=== PATIENT | male | born 1995 | race Caucasian/White ===

== ENCOUNTER 2016-06-09 12:24 | Emergency (ER) | payer BC ==
[2016-06-09 12:32] VITALS: BP 166/85
--- NOTE | 2016-06-09 13:32 | ERNOTE ---
ENT HPI Date of Service: 06/09/16 Presenting Symptoms: other - Sore throat Time Seen by Provider: 06/09/16 13:21 Source: patient, RN/MD, RN notes reviewed Exam Limitations: no limitations - Immun/Allergies/Home Medications Immunizations: IMMUNIZATION HX Immunizations Up to Date Yes Allergies/Adverse Reactions: Allergies Allergy/AdvReac Type Severity Reaction Status Date / Time No Known Allergies Allergy Unverified 06/09/16 12:32 Home Medications: HOME MEDICATIONS NK [No Home Medication] 06/09/16 [Last Taken Unknown] - History of Present Illness Narrative: Jefferson is a 21-year-old male who presents to the emergency department with a sore throat. He was initially evaluated by Dr. Beard in our clinic in 10:00. He was diagnosed with strep throat. He was sent here for further evaluation due to concerns that he could have a peritonsillar abscess. He reports having a sore throat for a week that seemed to be getting better, but noticed swelling in the left lateral aspect of his neck yesterday. He last took medication for his fever at 3:00 this morning and is currently afebrile. He denies any difficulty breathing or any difficulty swallowing. ENT Location: Present: throat Prearrival Treatment: Present: over the counter meds Associated Symptoms - ENT: Reports: fever, malaise, sore throat. Denies: poor fluid intake, poor solid intake, cough, voice change, nasal congestion/drainage , facial pain/swelling, tooth pain, jaw swelling, change in hearing, ear drainage, headache Prior Treament: Reports: recently seen Review of Systems - Review of Systems Constitutional: Present: See HPI EYE: Present: no symptoms reported ENT: Present: sore throat. Absent: throat swelling Respiratory: Absent: shortness of breath, cough, orthopnea, wheezing, stridor Cardiology: Present: no symptoms reported Gastrointestinal/Abdominal: Absent: nausea, vomiting, abdominal pain Genitourinary: Present: no symptoms reported Musculoskeletal: Present: neck pain. Absent: muscle stiffness Skin: Present: lumps. Absent: rash, lesions Neurological: Absent: headache, dizziness/light-headedness Endocrine: Present: no symptoms reported Hematologic/Lymphatic: Present: no symptoms reported Psych: Present: no symptoms reported - Patient's Past Medical History Patient History - Medical: No pertinent hx Patient History - Cardiac/Respiratory: No pertinent hx Patient History - Cancer: No Hx of Cancer Patient History - Surgical Procedures: No surgical history - Social History Living Situations: home Smoking Status: Never smoker Have you smoked in the past 12 months: No Alcohol Use: occasionally Drug Use: none - Immunizations Immunizations Up to Date: Yes Physical Exam - Physical Exam General Appearance: Present: wd/wn, alert, no apparent distress Eye Exam: Normal inspection: bilateral Ears, Nose, Throat: Present: hearing grossly normal, pharyngeal erythema, tonsillar swelling - Tonsils 2+ bilaterally, other - No focal area of inflammation present in oropharynx suspicious of abscess, foul breath odor present. Absent: abnormal TM (R), abnormal TM (L), nasal congestion, pharyngeal swelling, tonsillar exudate Neck: Present: supple, full range of motion, lymphadenopathy (R), lymphadenopathy (L), tender lateral - mild Respiratory: Present: no respiratory distress, normal breath sounds, no accessory muscle use, lungs clear Cardiovascular/Chest: Present: regular rate, rhythm, no murmur, normal peripheral pulses Neurological Exam: Present: alert, oriented, normal mood/affect, no motor/ sensory deficits Skin Exam: Present: normal color, warm/dry ED Progress - Results and Orders Patient's Lab Results:: I have reviewed the patient's lab results. - Vital Signs Patient's Vital Signs:: I have reviewed the patient's vital signs. Vital Signs: Vital Signs 06/09/16 12:29 Temperature 36.8 C Pulse Rate 115 H Respiratory 16 Rate Blood Pressure 166/85 O2 Sat by Pulse 99 Oximetry - Progress/Reassessment Chief Complaint: Sore Throat Progress:: Unchanged Plan - Plan Plan: No focal inflammation present in oropharynx to suggest an abscess, no airway compromise, patient is generally well appearing and reports that he really doesn 't fell that bad for having strep throat. Will give Rocephin d/t concerns of abscess from Dr. Beard. Discussed indications for needing f/u with patient. Departure Clinical Impression: Streptococcal tonsillopharyngitis - Departure Disposition: Home self-care Condition: Good Instructions: Strep Throat, [id number], Form - Excuse from Work, School, or Physical Activity Additional Instructions: Drink plenty of fluids Tylenol and/or ibuprofen for pain/fever Return for worsening symptoms or if no improvement in 2 days
== END 2016-06-09 13:44 | disposition home or self-care (01) ==
LOC: ER 12:24
DX: J03.00 Acute streptococcal tonsillitis, unspecified (principal)